=== PATIENT | female | born 1985 | race Caucasian/White ===

== ENCOUNTER 2017-05-19 20:19 | Emergency (ER) | payer SELFPAY | END 2017-05-20 02:19 | disposition left against medical advice (07) | LOC: FTE 20:19 | DX: Z53.21 Procedure and treatment not carried out due to patient leaving prior to being seen by health care provider (principal) ==

== ENCOUNTER 2017-08-28 05:39 | Emergency (ER) | payer BC ==
[2017-08-28 07:06] LABS: URINE PH (Dip) POC 5.5 (5.0-8.5)
[2017-08-28 07:06] LABS: URINE BLOOD (Dip) POC Trace-lysed (NEGATIVE); URINE GLUCOSE (Dip) POC Negative (NEGATIVE); URINE KETONES (Dip) POC Negative (NEGATIVE); URINE LEUKOCYTE EST (Dip) POC 1+ (NEGATIVE); URINE NITRITE (Dip) POC Negative (NEGATIVE); URINE TOTAL PROTEIN POC Negative (NEGATIVE)
== END 2017-08-28 07:40 | disposition home or self-care (01) ==
LOC: FTE 05:39
DX: N39.0 Urinary tract infection, site not specified (principal)
CPT/HCPCS: 81003; 81025; 99283

== ENCOUNTER 2018-05-04 23:58 | Emergency (ER) | payer SELFPAY, BC ==
[2018-05-05] MEDS: KETOROLAC 15 MG INJ IM (01:06)
[2018-05-05] MEDS: KETOROLAC 15 MG INJ IV (02:30)
== END 2018-05-05 02:33 | disposition home or self-care (01) ==
LOC: E/R 23:58
DX: M25.511 Pain in right shoulder (principal)
CPT/HCPCS: 73030; 73030-RT; 96372; 99284-25